=== PATIENT | male | born 1950 | race Caucasian/White ===

== ENCOUNTER 2017-11-19 07:36 | Emergency (ER) | payer MEDICARE, OTHER ==
[~2017-11-19] VITALS: Ht 170.1 cm; Wt 102.1 kg
--- NOTE | ~2017-11-19 | EKG ---
[place], [place] ELECTROCARDIOGRAM REPORT NAME: HIPOLITO HIGGINS UNIT #: [id number] ROOM: DOCTOR: EPIPHANY DRAFT REPORT BIRTHDATE: [birth year] [facility] Test Date: 2017-11-19 Test Time: 08:13:22 Pat Name: HIPOLITO HIGGINS Department: Room: Gender: Windows Application Developer: Natalee Monterroso : 1950 Requested By: ADELA JOSÉ Order Number: [id number] Reading MD: Renetta Agee MD Measurements Intervals [place] Rate: 62 P: TX: QRS: -46 QRSD: 105 T: -28 QT: 444 QTc: 451 Interpretive Statements Atrial fibrillation Abnormal R-wave progression, late transition Inferior infarct, age indeterminate Electronically Signed On 11-23-2017 12:14:47 PDT by Renetta Agee MD CM:EKGRPT:ELECTROCARDIOGRAM REPORT [id number] 1214 ADELA JOSÉ MD EPIPHMADDY DRAFT REPORT ADELA JOSÉ MD
[~2017-11-19 07:36] MED LIST: COUMADIN5 MG PO; LOPRESSOR50 MG PO
[2017-11-19 08:19] LABS: BASO % 0.3 % (0.0-1.0); EOS # 0.1 10*3/uL (0.0-0.4); EOS % 1.2 % (1.0-4.0); HEMATOCRIT 43.3 % (42.0-52.0); HEMOGLOBIN 14.8 g/dl (14.0-18.0); LYMPH # 0.6 10*3/uL (1.3-4.4); LYMPH % 8.9 % (27.0-41.0); MEAN CELL VOLUME 86.6 fl (80.0-94.0); MEAN CORPUSCULAR HGB 29.6 pg (27.0-31.0); MEAN CORPUSCULAR HGB CONC 34.2 g/dl (33.0-37.0); MONO # 0.4 10*3/uL (0.1-1.0); MONO % 5.3 % (3.0-9.0); NEUT # 5.6 10*3/uL (2.3-7.9); PLATELET COUNT AUTOMATED 205 10*3/uL (130-400); RED CELL DISTRI WIDTH 13.7 % (0-14.5); WHITE BLOOD COUNT 6.6 10*3/uL (4.8-10.8)
[2017-11-19 08:30] LABS: ACT PARTIAL THROMBO TIME 36.3 SECONDS (20.8-31.5); INTERNATIONAL NORM RATIO 3.2 (2.0-3.5)
[2017-11-19 08:36] LABS: ALBUMIN 3.9 gm/dl (3.1-4.5); ALKALINE PHOSPHATASE 93 U/L (45-117); BUN 29 mg/dl (7-24); CHLORIDE 103 mmol/L (98-107); CREATININE 1.13 mg/dL (0.70-1.30); POTASSIUM 4.5 mmol/L (3.5-5.1); SGOT/AST 31 IU/L (3-35); SGPT/ALT 33 U/L (12-78); SODIUM 135 mmol/L (136-145); TOTAL PROTEIN 7.1 gm/dL (6.4-8.2)
[2017-11-19 08:38] LABS: ETHYL ALCOHOL < 3.0 mg/dl (<3); TROPONIN I < 0.015 ng/ml (<0.045)
== END 2017-11-19 12:00 | disposition short-term general hospital (02) ==
LOC: ED 07:36
PROVIDERS: Emergency Medicine
DX: R56.9 Unspecified convulsions (principal); I10 Essential (primary) hypertension; E78.00 Pure hypercholesterolemia, unspecified; I25.10 Atherosclerotic heart disease of native coronary artery without angina pectoris; I48.91 Unspecified atrial fibrillation; Z91.030 Bee allergy status; Z88.8 Allergy status to other drugs, medicaments and biological substances; Z79.01 Long term (current) use of anticoagulants; Z95.0 Presence of cardiac pacemaker